=== PATIENT | female | born 1985 | race Caucasian/White ===

== ENCOUNTER 2022-10-07 14:36 | Outpatient (CLI) | payer MEDICAID, SELFPAY | END 2022-10-07 14:37 | disposition home or self-care (01) | LOC: NFLDREF 10-09 10:33 | PROVIDERS: PCP Physician Assistant Medical; Referring Provider Physician Assistant Medical; Visit Provider Physician Assistant Medical | DX: Z00.00 Encounter for general adult medical examination without abnormal findings (principal); E66.9 Obesity, unspecified; Z13.6 Encounter for screening for cardiovascular disorders | CPT/HCPCS: 80053; 80061; 84443 ==

== ENCOUNTER 2023-04-04 15:50 | Outpatient (CLI) | payer MEDICAID, SELFPAY ==
--- NOTE | 2023-04-04 16:00 | CRLHL7_ITS ---
For Patients: As a result of the Century Cures Act, medical imaging exams and procedure reports are released immediately into your electronic medical record. You may view this report before your referring provider. If you have questions, please contact your health care provider. Indication: Chronic sinusitis. Technique: Noncontrast axial CT of the paranasal sinuses with coronal reformats are provided. No comparisons. Findings: The visualized paranasal sinuses are clear. Incidental right side darrion bullosa. The ostiomeatal complexes are patent bilaterally. The visualized intraorbital contents appear within normal limits. Mild leftward nasal septal deviation. Impression: 1. Mild leftward nasal septal deviation. 2. Otherwise, unremarkable CT of the paranasal sinuses. Please note that all CT scans at this facility use dose modulation, iterative reconstruction, and/or weight-based dosing when appropriate to reduce radiation dose to as low as reasonably achievable. Dictated by Bj Bauman MD @ 04/04/2023 7:10:58 PM ----- ADDENDUM ----- FINDINGS: 3D re-formatted images were acquired. There is a 3-4 mm calcified lesion within the floor of the left maxillary sinus. The cortex appears contiguous with the floor of the maxillary sinus and this finding appears most suggestive of a small incidental osteoma. Dictated by Bj Bauman MD @ Apr 25 2023 5:17PM (Electronically Signed)
== END 2023-04-04 15:51 | disposition home or self-care (01) ==
LOC: CT 15:52
PROVIDERS: PCP Physician Assistant Medical; Visit Provider Otolaryngology
DX: J32.9 Chronic sinusitis, unspecified (principal); J34.2 Deviated nasal septum
CPT/HCPCS: 70486

== ENCOUNTER 2023-06-16 20:44 | Emergency (ER) | payer MEDICAID, SELFPAY ==
[2023-06-16 20:55] VITALS: BP 154/95; PULSE 80; RESP 18; TEMP 36.2; O2SAT 99
--- NOTE | 2023-06-16 21:07 | ED_ITS ---
HPI - General Adult General Chief complaint: Chest Pain Stated complaint: R side pain-left face numbness, headache Time Seen by Provider: 06/16/23 21:01 History of Present Illness HPI narrative: Patient comes in today with a host of concerns ranging from right shoulder pain to headaches to change in pressure of her sinuses when she bends forward to tingling on the left eye. She has been sick for last week. She was seen at urgent care where they did do a chest x-ray which was normal. Patient states he takes no medications. She is nonsmoker. She has not been drinking alcohol. She has had no fevers no chills no night sweats no chest pain no shortness of breath. She is mostly concerned that she is not having a stroke. Headache is mild and located in the frontal region. No radicular symptoms. Related Data Home Medications Medication Instructions Recorded Confirmed No Known Home Medications 05/30/22 06/15/23 Allergies Allergy/AdvReac Type Severity Reaction Status Date / Time No Known Drug Allergies Allergy Verified 06/15/23 13:34 Review of Systems Status of ROS: Reports: 10 or more systems reviewed and unremarkable except as noted in History and below [facility] Medical History Subchorionic hemorrhage of placenta in first trimester ?O41.8X10 - Other specified disorders of amniotic fluid and membranes, first trimester, not applicable or unspecified (ICD-10) ?O46.8X1 - Other antepartum hemorrhage, first trimester (ICD-10) ?Z34.90 - Encounter for supervision of normal , unspecified, unspecified trimester (ICD-10) Normal spontaneous vaginal delivery ?O80 - Encounter for full-term uncomplicated delivery (ICD-10) History of vaginal delivery History of use of contraceptive intrauterine device (IUD) ?Z92.0 - Personal history of contraception (ICD-10) History of hypothyroidism (2013) ?Z86.39 - Personal history of other endocrine, nutritional and metabolic disease (ICD-10) Surgical History History of tubal ligation ?Z98.51 - Tubal ligation status (ICD-10) History of colposcopy with cervical biopsy (2005) ?Z98.890 - Other specified postprocedural states (ICD-10) History of cholecystectomy ?Z90.49 - Acquired absence of other specified parts of digestive tract (ICD- 10) Family History Maternal Grandfather Diabetes Uncle Diabetes Aunt Diabetes Thyroid disease Father Diabetes Mother No problems noted. Daughter High cholesterol Social History (Updated 05/27/22 @ 10:51 by Deyanira Love ~ PSR) Narrative: -Ad Smoking Status: Never smoker Little interest or pleasure in doing things: not at all Feeling down, depressed, or hopeless: not at all Exam Narrative: Exam Narrative: EXAM GENERAL: Patient appears comfortable and well. EYES: No scleral icterus. ENT: Tympanic membranes and oropharynx normal. THYROID: no thyroid nodules or thyromegaly. LYMPH: No supraclavicular or cervical lymphadenopathy. SKIN: Visible skin seen during exam normal or with benign process only. EXT: No dependent lower extremity pedal edema. HEART: Regular rate and rhythm with no murmurs, rubs, or gallops. LUNGS: Clear to auscultation bilaterally with no crackles or wheezes. ABD: Soft, non tender, non distended. PSYCH: Good eye contact, speech is not pressured. Neurologic cranial nerves 2-12 grossly intact no focal defects. Const: Vital Signs, click to edit/add: Vital Signs - 24 hr 06/16/23 20:55 Temperature 97.2 F L Pulse Rate [Left P ulse Oximeter] 80 Respiratory Rate 18 Blood Pressure [Ri ght Upper Arm] 154/95 H Pulse Oximetry 99 Oxygen Delivery Me thod Room Air Course Course ED Course: Patient seen and examined. Vital Signs Vital signs: Initial Vital Signs Temperature 97.2 F L 06/16/23 20:55 Temperature Source Temporal Artery Scan 06/16/23 20:55 Pulse Rate 80 06/16/23 20:55 Pulse Rhythm Regular 06/16/23 20:55 Respiratory Rate 18 06/16/23 20:55 Blood Pressure 154/95 H 06/16/23 20:55 Blood Pressure Mean 114 H 06/16/23 20:55 Blood Pressure Position Sitting 06/16/23 20:55 Pulse Oximetry 99 06/16/23 20:55 Oxygen Delivery Method Room Air 06/16/23 20:55 Vital Signs Temperature 97.2 F L 06/16/23 20:55 Pulse Rate 80 06/16/23 20:55 Respiratory Rate 18 06/16/23 20:55 Blood Pressure 154/95 H 06/16/23 20:55 Pulse Oximetry 99 06/16/23 20:55 Oxygen Delivery Method Room Air 06/16/23 20:55 Temperature 97.2 F L 06/16/23 20:55 Pulse Rate 80 06/16/23 20:55 Respiratory Rate 18 06/16/23 20:55 Blood Pressure 154/95 H 06/16/23 20:55 Pulse Oximetry 99 06/16/23 20:55 Oxygen Delivery Method Room Air 06/16/23 20:55 Medical Decision Making MDM Narrative Medical decision making narrative: Patient seen examined. She appears to be anxious. She has a completely normal exam from my perspective. Her symptoms are likely due to anxiety versus viral syndrome. I did explain to her that laboratory testing and imaging would be unlikely to be helpful. She seemed disappointed in this but I did explain that I did not want to put her through testing that would only seem to complicate her situation. I did recommend rest fluids and Tylenol Motrin over the weekend with close fasting follow-up with her primary physician. Differential Diagnosis Differential Diagnosis: Viral syndrome sinusitis CVA angina Discharge Plan Discharge Clinical Impression: Headache Patient Disposition: Home, Self-Care Condition: Stable Instructions: General Headache (ED) Additional Instructions: Rest Fluids Tylenol Motrin Follow-up fasting with your doctor next week. Activity Level: No Restrictions Discharge Diet: Regular Prescriptions: No Action No Known Home Medications Follow Up/Referrals: Bernadette Mahmood PA-C [Primary Care Provider] - Stand Alone Forms: [employer] Info Instructions
== END 2023-06-16 21:24 | disposition home or self-care (01) ==
LOC: ED 21:22
PROVIDERS: Emergency Provider Internal Medicine; PCP Physician Assistant Medical
DX: R51.9 Headache, unspecified (principal)
CPT/HCPCS: 99283

== ENCOUNTER 2023-12-21 10:32 | Outpatient (CLI) | payer OTHER, SELFPAY | END 2023-12-21 10:33 | disposition home or self-care (01) | PROVIDERS: PCP Physician Assistant Medical; Visit Provider Physician Assistant Medical | DX: L65.9 Nonscarring hair loss, unspecified (principal); Z13.0 Encounter for screening for diseases of the blood and blood-forming organs and certain disorders involving the immune mechanism; Z13.1 Encounter for screening for diabetes mellitus; Z13.220 Encounter for screening for lipoid disorders | CPT/HCPCS: 80053; 80061; 82306; 82671; 82728; 84403; 84443 ==

== ENCOUNTER 2024-01-15 13:52 | Outpatient (CLI) | payer OTHER, SELFPAY ==
--- NOTE | 2024-01-15 14:00 | CRLHL7_ITS ---
For Patients: As a result of the Century Cures Act, medical imaging exams and procedure reports are released immediately into your electronic medical record. You may view this report before your referring provider. If you have questions, please contact your health care provider. INDICATION: Dysmenorrhea. TECHNIQUE: Transabdominal and transvaginal pelvic ultrasound. Grayscale and spectral Doppler images. FINDINGS: Uterus is anteverted and measures 8.5 x 3.6 x 5.3 cm. Normal endometrial stripe thickness of 8 mm. Both ovaries appear normal and have normal color and spectral Doppler flow. No adnexal mass or free fluid. IMPRESSION: Normal pelvic ultrasound. Dictated by Alfredo Harvey MD @ 01/16/2024 3:44:37 PM (Electronically Signed)
== END 2024-01-15 13:53 | disposition home or self-care (01) ==
PROVIDERS: PCP Physician Assistant Medical; Visit Provider Physician Assistant Medical
DX: N94.6 Dysmenorrhea, unspecified (principal)
CPT/HCPCS: 76830; 76856; 93976

== ENCOUNTER 2024-04-03 11:04 | Outpatient (CLI) | payer OTHER, SELFPAY | END 2024-04-03 11:05 | disposition home or self-care (01) | PROVIDERS: PCP Physician Assistant Medical; Visit Provider Physician Assistant Medical | DX: E55.9 Vitamin D deficiency, unspecified (principal); E11.9 Type 2 diabetes mellitus without complications; Z79.84 Long term (current) use of oral hypoglycemic drugs | CPT/HCPCS: 82043; 82306; 82570 ==

== ENCOUNTER 2024-06-11 09:42 | Outpatient (CLI) | payer OTHER, SELFPAY ==
--- NOTE | 2024-06-11 09:45 | CRLHL7_ITS ---
For Patients: As a result of the Century Cures Act, medical imaging exams and procedure reports are released immediately into your electronic medical record. You may view this report before your referring provider. If you have questions, please contact your health care provider. DIGITAL DIAGNOSTIC BILATERAL MAMMOGRAM USING TOMOSYNTHESIS AND COMPUTER-AIDED DETECTION LEFT BREAST ULTRASOUND CLINICAL HISTORY: LEFT breast pain. COMPARISON: 09/04/2020. TECHNIQUE: Digital BILATERAL mammogram in four projections with computer-aided detection. Tomosynthesis was used in this interpretation. Real-time ultrasound imaging of LEFT breast with imaging documentation. Scanning was performed by both the technologist and the radiologist. BREAST COMPOSITION: There are scattered areas of fibroglandular density. FINDINGS: 3D CC/MLO BILATERAL mammogram images submitted. No suspicious mass or architectural distortion. No suspicious calcifications or adenopathy. Targeted LEFT breast ultrasound performed at 12 o`clock 7 cm from the nipple corresponding to the area of concern. Normal fibroglandular tissue is present. No fluid collection or suspicious mass. IMPRESSION: No suspicious findings. No evidence of malignancy. RECOMMENDATIONS: Clinical follow-up and age-appropriate screening mammography. BI-RADS Category 2: Benign A lay language report of this examination will be provided to the patient. Dictated by Elbert Ngo MD @ 06/11/2024 11:44:17 AM jj/Dictated by: Elbert Ngo MD @ 06/11/2024 11:44:00 AM (Electronically Signed)
--- NOTE | 2024-06-11 10:15 | CRLHL7_ITS ---
For Patients: As a result of the Cures Act, medical imaging exams and procedure reports are released immediately into your electronic medical record. You may view this report before your referring provider. If you have questions, please contact your health care provider. PLEASE SEE DIGITAL DIAGNOSTIC BILATERAL MAMMOGRAM PERFORMED SAME DAY CRL:[email or web address] [email or web address]/Dictated by: Elbert Ngo MD @ 06/11/2024 11:44:00 AM (Electronically Signed)
== END 2024-06-11 09:43 | disposition home or self-care (01) ==
LOC: MAMMO 09:42
PROVIDERS: PCP Physician Assistant Medical; Visit Provider Emergency Medicine
DX: N64.4 Mastodynia (principal)
CPT/HCPCS: 76642; 77066; G0279

== ENCOUNTER 2025-04-06 21:01 | Emergency (ER) | payer OTHER, SELFPAY ==
--- OUTSIDE RECORDS SUMMARY | 2025-04-06 21:04 | XMS_ITS | Clinical Summary ---
[facility] Address [address] [place] [address] Care Team Providers Care Investigator Vice Name Role Phone Bernadette Mahmood PA-C Primary Care Provider [phone] Source Comments You are receiving this document as you are listed as the primary care provider,follow-up provider, or the patient has been referred to you for consultation.This is in compliance with the Medicare and[facility] EHR Incentive Program,which states Providers who transition their patient to another setting of careor provider of care or refers their patient to another provider of care shouldprovide summary care record for each transition of care or referral. [facility] Allergies No known active allergies Medications levothyroxine (SYNTHROID) 25 MCG tablet Take 25 mcg by mouth daily (every 24 hours). 4 Active predniSONE (DELTASONE) 20 MG tablet 3 po qd for 2 days, 2 for 4d, 1 for 4d, one half for 2d. 19 Tab 7 Active Additional Information Patient not taking.Reported on 10/19/2022 Active Problems No known active problems Family History Medical History Relation Name Comments Cataract Father Relation Name Status Comments Father Social History Tobacco Use Types Packs/Day Years Used Date Smoking Tobacco: Never Comments Unknown Sex and Gender Information Value Date Recorded Sex Assigned at Not on file Legal Sex Female 4:59 AM CDT Gender Identity Not on file Sexual Orientation Not on file Last Filed Vital Signs Vital Sign Reading Time Taken Comments Blood Pressure 120/87 02/02/2017 10:53 AM CDT Pulse 78 02/02/2017 10:53 AM CDT Temperature 37.1 C (98.7 F) 02/02/2017 10:53 AM CDT Respiratory Rate 16 02/02/2017 10:53 AM CDT Oxygen Saturation 100% 02/02/2017 10:53 AM CDT Inhaled Oxygen Concentration - - Weight - - Height - - Body Mass Index - - Plan of Treatment Upcoming Encounters Date Type Department Care Team (Late st Contact Info) Description 04/16/2025 10:20 AM CDT Appointment [facility] [place] [id number] [place] [id number] [place]on [address]y, [address] [place], [place] [id number] Health Maintenance Due Date Last Done Comments Cervical Cancer Screening Due 1985 Hep C Screening (Preventive Services) 1985 HIV Screening (Preventive Services) 2001 Adult Preventive Visit 2003 DTaP/Tdap/Td Vaccine (1 - Tdap) 2004 HepB Vaccine (1) 2004 HPV Vaccine (1 - 3-dose SCDM series) 2012 COVID-19 Vaccine ( - 2023-2 5 season) 2025 Influenza Vaccine (#1) 2025 3, 06/04/2007 Zoster/Shingles Vaccine (1 o f 2) 2035 HepA Vaccine Aged Out No longer eligi ble based on patient's age to complete this topic Hib Vaccine Aged Out No longer eligi ble based on patient's age to complete this topic IPV (Polio) Vaccine Aged Out No longe r eligible based on patient's age to complete this topic MCV4 Vaccine Aged Out No longer eligi ble based on patient's age to complete this topic Meningococcal B Vaccine Aged Out No l onger eligible based on patient's age to complete this topic Pneumococcal Vaccine Aged Out No long er eligible based on patient's age to complete this topic Care Teams Investigator Vice Relationship Specialty Start Date End Date Bernadette Mahmood PA-C [address], [place] [address] PCP - General Physician Mobile Application Development Lead 10/11/22
--- OUTSIDE RECORDS SUMMARY | 2025-04-06 21:04 | XMS_ITS | Patient Health Record ---
Author Organization [facility] Address [address] [place] [address] Care Team Providers Care Clinical Faculty Name Role Phone Bernadette Mahmood Primary Care Provider MARBIN Carrasquillo Unavailable [phone] Catrachito White Unavailable Unavailable Allergies No Known Allergies Reason For Referral No Information Social History Tobacco Use: Social History Observation Description Date Details (start date - stop date) Never Smoker NA - NA Social History Alcohol Use: Social Info Question Answer Notes Recreational drugs Recreational Drug Use: No Tobacco Use: Social Info Question Answer Notes Tobacco use/smoking Are you a nonsmoker Problems Problem Type SNOMED Code ICD Code Onset Dates Problem Status W/U Status Risk Notes Problem Deviated nasal septum (880302549) Nasal septal deviation (J34.2) Active confirmed Plan Of Treatment No Information Insurance Providers Payer Name Payer Address Payer Phone Subscriber Number Group Number Insured Name Patient Relationship to Insured Coverage Start Date Coverage End Date [facility] [address] [place] [phone] [id number] Gemma Norwood Self - patient is the insured 2022 Medical (General) History Surgical History Surgery Date(Month/Year) Gallbladder
[2025-04-06 21:32] VITALS: BP 144/90; PULSE 79; RESP 18; TEMP 36.9; O2SAT 98; BMI 33.3
--- NOTE | 2025-04-07 00:11 | CRLHL7_ITS ---
For Patients: As a result of the Cures Act, medical imaging exams and procedure reports are released immediately into your electronic medical record. You may view this report before your referring provider. If you have questions, please contact your health care provider. Indication: Mid back pain. Technique: Two views of the thoracolumbar spine. Comparison: None. Findings/Impression: No acute fracture or suspicious osseous lesion identified. Vertebral bodies maintain their normal heights with preserved thoracic kyphosis and lumbar lordosis. No significant spondylolisthesis. No advanced disc space height loss. There is mild multilevel spondylosis, most prominent throughout the visualized mid to distal thoracic spine. No suspicious soft tissue abnormality. Dictated by Farshad Juan MD @ 04/07/2025 1:22:58 AM (Electronically Signed)
--- NOTE | 2025-04-07 00:15 | ED_ITS ---
HPI - General Adult General Chief complaint: Back Injury/Pain Stated complaint: sharp/ stinging pain L side Time Seen by Provider: 04/07/25 00:01 Source: patient Mode of arrival: ambulatory Limitations: no limitations History of Present Illness HPI narrative: 39-year-old male presents to the emergency department for evaluation of back pain in the mid right paraspinal muscle area for the past 3 days. She comes in late on Monday night for this. Took some ibuprofen yesterday which did help but pain returned today and she has not taken any Tylenol, ibuprofen or tried any other interventions prior to coming to the emergency department. Unfortunately was quite busy here with high acuity patients and she had a 3+ hour wait prior to being seen. No fever. No trauma or injury. No dysuria, no hematuria. Feels a little nauseated and bloated with some gas. No vomiting. Diarrhea. She did try taking some MiraLax thinking she might be constipated and her symptoms have not improved. She did have a bowel movement yesterday. Continues to eat and drink. No shortness of breath, no chest pain. No rash. No prior history of back surgery. She is status post cholecystectomy. Past medical history is notable for obesity. She does not take any long-term medications. No known drug allergies. Nonsmoker. ROS is notable for the GI and musculoskeletal symptoms oral, otherwise denies times 12 systems. Related Data Previous Rx's ?Medication ?Instructions ?Recorded blood-glucose meter (Blood Glucose #1 ea 12/28/23 Monitoring kit) lancing device (lancing device #1 ea 12/28/23 with lancets) cholecalciferol (vitamin D3) 25 25 mcg PO QDAY #90 cap s 04/04/24 mcg (1,000 unit) capsule azithromycin 250 mg tablet See Rx Instructions PO .COM PLEX #6 07/17/24 tabs blood sugar diagnostic (Accu-Chek #100 ea 02/13/25 Guide test strips) Allergies Allergy/AdvReac Type Severity Reaction Status Date / Time No Known Drug Allergies Allergy Verified 05/29/24 14:14 [facility] Medical History Breast pain ?N64.4 - Mastodynia (ICD-10) Subchorionic hemorrhage of placenta in first trimester ?O41.8X10 - Other specified disorders of amniotic fluid and membranes, first trimester, not applicable or unspecified (ICD-10) ?O46.8X1 - Other antepartum hemorrhage, first trimester (ICD-10) ?Z34.90 - Encounter for supervision of normal , unspecified, unspecified trimester (ICD-10) History of vaginal delivery History of use of contraceptive intrauterine device (IUD) ?Z92.0 - Personal history of contraception (ICD-10) History of hypothyroidism (2013) ?Z86.39 - Personal history of other endocrine, nutritional and metabolic disease (ICD-10) Surgical History History of tubal ligation ?Z98.51 - Tubal ligation status (ICD-10) History of colposcopy with cervical biopsy (2005) ?Z98.890 - Other specified postprocedural states (ICD-10) History of cholecystectomy ?Z90.49 - Acquired absence of other specified parts of digestive tract (ICD- 10) Family History Maternal Grandfather Diabetes Uncle Diabetes Aunt Diabetes Thyroid disease Father Diabetes Mother No problems noted. Daughter High cholesterol Social History Narrative: -Ad; 5 children Lives multigenerational home Never Smoker Alcohol- none Smoking Status: Never smoker How often do you have a drink containing alcohol: never AUDIT-C Alcohol total score: 0 Non-prescribed substance use: denies use Exam Const: Vital Signs, click to edit/add: Vital Signs - 24 hr 04/06/25 21:32 04/07/25 00:23 Temperature 98.5 F Pulse Rate [Pulse Oximeter] 79 86 Respiratory Rate 18 16 Blood Pressure [Ri ght Upper Arm] 144/90 H 115/79 Pulse Oximetry 98 98 Oxygen Delivery Me thod Room Air Room Air Documenting provider has reviewed patient's vital signs: yes Common normals: no apparent distress and alert General appearance: cooperative, comfortable and well kempt HENMT: Common normals: normocephalic, moist oral mucous membranes and oropharynx normal Head and scalp: normocephalic Throat: posterior oropharynx normal Eye: Common normals: conjunctivae normal General eye: normal appearance of both eyes Conjunctiva: conjunctiva(e) normal Neck & C-Spine: Common normals: no lymphadenopathy General: normal visual inspection Resp: Common normals: normal respiratory effort and no use of accessory muscles Effort & inspection: able to speak in complete sentences Cardio: Common normals: regular rate, regular rhythm, S1 normal heart sound, S2 normal heart sound and no murmurs Rate: regular rate Rhythm: regular rhythm Heart sounds: S1 normal and S2 normal GI: Common normals: Normal to inspection, nondistended, normoactive bowel sounds present, soft to palpation, non-tender, no hepatosplenomegaly and no masses Palpation: soft and no hepatosplenomegaly : Common normals: no CVA tenderness Bladder/kidney exam: no CVA tenderness Back & Pelvis: Common normals: no CVA tenderness, thoracic and lumbar spine normal to inspection and no thoracic nor lumbar tenderness Sacroiliac joints: SI joints normal Other: Tenderness to left paraspinal muscles along the L1 through L2 region especially. No deformity. No rash. Extremity: Common normals: normal to inspection Neuro: Common normals: moves all extremities Sensorium/orientation: alert Motor exam: no movement abnormalities noted Psych: Appearance: well kempt Attitude: engaged Activity/motor behavior: appropriate eye contact Insight: insight good Judgement: judgment good Skin: Common normals: no rashes or lesions noted General skin exam: no rashes or lesions noted Course Course ED Course: 39-year-old female with focal back pain on exam, no series trauma or injury. Some nonspecific nausea and abdominal bloating but no alarming features of fever, bloody diarrhea, severe symptoms. Most likely musculoskeletal strain but cannot exclude more serious lumbar spine pathology, obstructive abdominal process, gas, colitis your, gastritis, amongst others. Cannot rule out nep hrolithiasis without urinalysis. Will obtain urinalysis. Given Toradol and Flexeril for pain obtain thoracolumbar x-ray. Await findings. Reevaluation(s) Time of Reevaluation #1: 01:41 Reevaluation #1: Counseled patient on x-ray findings. Some degenerative changes but no major findings in the abdomen. Urinalysis was not suspicious of problems either. With focal tenderness, this is suspicious of a muscular strain. Patient is reporting improvement of her pain with the Toradol and Flexeril. We discussed the muscle strain and management. Recommended Tylenol and ibuprofen. for prescription for muscle relaxants to have at home, she declines. I do not think steroids are necessary. Likely to have symptoms for another 3-5 days, heat encouraged. Primary care follow-up if not improving in 1 week. Alarm symptoms reviewed that would warrant ED presentation. She verbalizes understanding and agreement. Written instructions provided as well as printouts for home exercise plan Vital Signs Vital signs: Initial Vital Signs Temperature 98.5 F 04/06/25 21:32 Temperature Source Temporal Artery Scan 04/06/25 21:32 Pulse Rate 79 04/06/25 21:32 Respiratory Rate 18 04/06/25 21:32 Blood Pressure 144/90 H 04/06/25 21:32 Blood Pressure Mean 108 H 04/06/25 21:32 Blood Pressure Position Sitting 04/06/25 21:32 Pulse Oximetry 98 04/06/25 21:32 Oxygen Delivery Method Room Air 04/06/25 21:32 Vital Signs Temperature 98.5 F 04/06/25 21:32 Pulse Rate 79 04/06/25 21:32 Respiratory Rate 18 04/06/25 21:32 Blood Pressure 144/90 H 04/06/25 21:32 Pulse Oximetry 98 04/06/25 21:32 Oxygen Delivery Method Room Air 04/06/25 21:32 Temperature 98.5 F 04/06/25 21:32 Pulse Rate 86 04/07/25 00:23 Respiratory Rate 16 04/07/25 00:23 Blood Pressure 115/79 04/07/25 00:23 Pulse Oximetry 98 04/07/25 00:23 Oxygen Delivery Method Room Air 04/07/25 00:23 Medications Administered Medications: Discontinued Medications Generic Name Dose Route Start Last Admin Trade Name Freq PRN Reason Stop Dose Admin Cyclobenzaprine HCl 10 mg 04/07/25 00:11 04/07/25 00:21 Cyclobenzaprine Hcl 10 Mg Tablet PO 04/07/25 00:12 10 mg ONCE ONE Administration Ketorolac Tromethamine 10 mg 04/07/25 00:11 04/07/25 00:21 Ketorolac 10 Mg Tablet PO 04/07/25 00:12 10 mg ONCE ONE Administration Medical Decision Making Lab Data Lab results reviewed: Yes I reviewed the patient's lab results Lab results narrative: Urinalysis reassuring. No blood, infection or signs of dehydration. Labs: Lab Results 04/07/25 Range/Units 00:19 Urine Color Yellow (Yellow) Urine Appearance Clear (Clear) Urine pH 7.0 (5.0-8.5) Ur Specific [place] 1.025 (1.000-1.030) Urine Protein Negative (Negative) Urine Glucose (UA) Negative (Negative) Urine Ketones Trace A (Negative) Urine Blood Negative (Negative) Urine Nitrite Negative (Negative) Urine Bilirubin Negative (Negative) Urine Urobilinogen 2.0 A (0.2-1.0) Ur Leukocyte Esterase Negative (Negative) Urine RBC 0-2 (0-2) Urine WBC 0-2 (0-5) Ur Squamous Epith Cells None (None-Few) Urine Bacteria None (None) Imaging Data x-ray thoracolumbar spine: Attestation: I have reviewed the pertinent imaging results. My impression: very mild scoliosis and mild degenerative changes in the T10 through L3 areas Radiologist's impression: Findings/Impression: No acute fracture or suspicious osseous lesion identified. Vertebral bodies maintain their normal heights with preserved thoracic kyphosis and lumbar lordosis. No significant spondylolisthesis. No advanced disc space height loss. There is mild multilevel spondylosis, most prominent throughout the visualized mid to distal thoracic spine. No suspicious soft tissue abnormality. Dictated by Farshad Juan MD @ 04/07/2025 1:22:58 AM (Electronic Signature) Discharge Plan Discharge Clinical Impression: Back strain Patient Disposition: Home w/ Parent or Adult Condition: Improved Instructions: Low Back Strain (ED), Lower Back Exercises (ED), Core Strengthening Exercises (ED) Additional Instructions: as we discussed, the x-rays do show a little bit of arthritis changes in your spine that are not serious but they do tell me that you are more likely to have similar muscle strains in the future. You would benefit from a course of physical therapy and core strengthening to help reduce her risk of injury. I suspect you are correct, this strain happen from lifting your child. This is a little too much weight for you at this point. Consider seeing a physical therapist to start a regimen for core strengthening. I have included some basic exercises as well. Muscle strains like this tend to last about 7 days, you probably have about another 4-5 days of tenderness. He does more helpful than ice at this point. For pain, I recommend Tylenol 1000 mg every 6 hours and or ibuprofen 600 mg every 6 hours to help with pain. It is okay to use melatonin or Benadryl to help you sleep at night as well. Do gentle stretching twice daily to help loosen the muscles as well. The abdomen all looks okay on x-ray. I think the pain is just wrapping around from your back which is a phenomenon that is very common. It is okay to use stool softeners if you see fit but I do not appreciate any severe constipation. There were no signs of infection or blood in your urine to suggest urinary tract infection or kidney stone. If her symptoms have not improved in 1 week, I recommend following up with her primary care provider for physical therapy referral. Activity Level: Activity as Tolerated Discharge Diet: Regular Prescriptions: No Action (DME) blood-glucose meter [Blood Glucose Monitoring] Kit See Rx Instructions miscellaneous .MEDSUPPLY Qty: 1 0RF Rx Instructions: As directed (DME) lancing device [lancing device with lancets] Misc See Rx Instructions .MEDSUPPLY Qty: 1 3RF Rx Instructions: As directed- once daily for diabetes cholecalciferol (vitamin D3) 25 mcg (1,000 unit) capsule 25 mcg PO QDAY Qty: 90 0RF Rx Instructions: one capsule daily azithromycin 250 mg tablet See Rx Instructions PO .COMPLEX Qty: 6 0RF Rx Instructions: For 250 mg dose pack: take 500 mg today (day 1), then 250 mg for 4 days (days 2-5) PO (DME) Accu-Chek Guide test strips Strip See Rx Instructions .Route Qty: 100 0RF Rx Instructions: Use to test blood sugars once daily Follow Up/Referrals: Bernadette Mahmood PA-C [Primary Care Provider, Family Practice] Stand Alone Forms: PackLink Info Instructions
--- OUTSIDE RECORDS SUMMARY | 2025-04-07 00:18 | XMS_ITS | Clinical Summary ---
[facility] Address [address] [place] [address] Care Team Providers Care Fire Official Name Role Phone Bernadette Mahmood PA-C Primary Care Provider [phone] Source Comments You are receiving this document as you are listed as the primary care provider,follow-up provider, or the patient has been referred to you for consultation.This is in compliance with the Medicare and[facility] EHR Incentive Program,which states Providers who transition their patient to another setting of careor provider of care or refers their patient to another provider of care shouldprovide summary care record for each transition of care or referral. [facility] Allergies No known active allergies Medications [...] [facility] [id number] [place] [id number] [place] [address], [address] [place], [place] [id number] Health Maintenance Due Date Last Done Comments [...] age to complete this topic Care Teams Fire Official Relationship Specialty Start Date End Date Bernadette Mahomod PA-C [address], [place] [address] PCP - General Physician [place] 10/11/22
--- OUTSIDE RECORDS SUMMARY | 2025-04-07 00:18 | XMS_ITS | Patient Health Record ---
Author Organization [facility] Address [address] [place] [address] Care Team Providers Care Animal Rehabilitator Name Role Phone Bernadette Mahmood Primary Care Provider MARBIN Carrasquillo Unavailable [phone] Catrachito White Unavailable Unavailable Allergies No Known [...] Status Risk Notes Problem Deviated nasal septum ([id number]) Nasal septal deviation (J34.2) Active confirmed Plan Of Treatment No Information Insurance Providers Payer Name Payer Address Payer Phone Subscriber Number Group Number Insured Name Patient Relationship to Insured Coverage Start Date Coverage End Date [facility] [address] [place] [address] [id number] Gemma Norwood Self - patient is the insured 2022 Medical (General) History Surgical History Surgery Date(Month/Year) Gallbladder
[2025-04-07] MEDS: KETOROLAC 10 MG TABLET PO (00:21)
[2025-04-07] MEDS: CYCLOBENZAPRINE HCL 10 MG TABLET PO (00:21)
[2025-04-07 00:22] LABS: Appearance Urine Clear (Clear)
[2025-04-07 00:23] VITALS: BP 115/79; PULSE 86; RESP 16; O2SAT 98
== END 2025-04-07 01:45 | disposition home or self-care (01) ==
PROVIDERS: Emergency Provider Family Medicine; PCP Physician Assistant Medical
DX: S39.012A Strain of muscle, fascia and tendon of lower back, initial encounter (principal)
CPT/HCPCS: 72080; 81001; 99283; 99284; A9270

== ENCOUNTER 2025-04-14 11:57 | Outpatient (CLI) | payer OTHER, SELFPAY | END 2025-04-14 11:58 | disposition home or self-care (01) | PROVIDERS: PCP Physician Assistant Medical; Visit Provider Physician Assistant Medical | DX: Z00.00 Encounter for general adult medical examination without abnormal findings (principal); E55.9 Vitamin D deficiency, unspecified; E11.9 Type 2 diabetes mellitus without complications | CPT/HCPCS: 80053; 80061; 82306; 82728; 83001; 83690; 84443 ==

== ENCOUNTER 2025-06-11 09:42 | Outpatient (CLI) | payer OTHER, SELFPAY ==
--- NOTE | 2025-06-11 09:45 | CRLHL7_ITS ---
For Patients: As a result of the Cures Act, medical imaging exams and procedure reports are released immediately into your electronic medical record. You may view this report before your referring provider. If you have questions, please contact your health care provider. DIGITAL DIAGNOSTIC BILATERAL MAMMOGRAM WITH COMPUTER-AIDED DETECTION AND TOMOSYNTHESIS CLINICAL HISTORY: RIGHT breast lump, LEFT breast pain COMPARISON: 06/11/2024, 09/04/2020. TECHNIQUE: Digital BILATERAL mammogram in 4 projections with computer-aided detection. Tomosynthesis was used in this interpretation. Real-time ultrasound imaging of BILATERAL breast with imaging documentation. BREAST COMPOSITION: There are scattered areas of fibroglandular density. FINDINGS: 3D CC/MLO BILATERAL mammogram images submitted. No suspicious masses or architectural distortion. No suspicious calcifications or adenopathy. Targeted RIGHT breast ultrasound performed in the area of concern. At 12 o`clock 10 cm from the nipple there is normal fibroglandular tissue. No fibrocystic change or mass. Targeted LEFT breast ultrasound performed in the area of concern at 12 o`clock 12 cm from the nipple. Normal fibroglandular tissue is present. No suspicious findings. IMPRESSION: No evidence of malignancy. RECOMMENDATIONS: Age-appropriate screening mammography. A lay language report of this examination will be provided to the patient. BI-RADS Category 2. Benign Dictated by Elbert Ngo MD @ 06/11/2025 10:46:26 AM KEATON/maria elena DW/Dictated by: Elbert Ngo MD @ 06/11/2025 10:46:00 AM (Electronically Signed)
--- NOTE | 2025-06-11 10:15 | CRLHL7_ITS ---
For Patients: As a result of the Century Cures Act, medical imaging exams and procedure reports are released immediately into your electronic medical record. You may view this report before your referring provider. If you have questions, please contact your health care provider. Please see digital diagnostic BILATERAL mammogram report done the same day for combined report. DSM:maria elena 06/11/2025 DW/Dictated by: Elbert Ngo MD @ 06/11/2025 10:39:00 AM (Electronically Signed)
== END 2025-06-11 09:43 | disposition home or self-care (01) ==
LOC: MAMMO 09:42
PROVIDERS: PCP Physician Assistant Medical; Visit Provider Physician Assistant Medical
DX: N63.10 Unspecified lump in the right breast, unspecified quadrant (principal); N64.4 Mastodynia; N64.59 Other signs and symptoms in breast; R10.9 Unspecified abdominal pain; R53.83 Other fatigue
CPT/HCPCS: 76642; 77066; 80053; 82306; 82607; 83690; 86140; G0279

== ENCOUNTER 2025-06-17 13:42 | Outpatient (CLI) | payer OTHER, SELFPAY ==
--- NOTE | 2025-06-17 13:45 | CRLHL7_ITS ---
For Patients: As a result of the Century Cures Act, medical imaging exams and procedure reports are released immediately into your electronic medical record. You may view this report before your referring provider. If you have questions, please contact your health care provider. CLINICAL HISTORY: Pelvic and perineal pain COMPARISON: None. TECHNIQUE: 2D bhat-scale ultrasound. In addition, color Doppler and spectral Doppler analysis was performed of the pelvis using a transabdominal and transvaginal approach. Transvaginal imaging performed to better visualize the endometrial stripe and ovaries. FINDINGS: Uterus measures 8.4 x 3.7 x 5.2 cm. No uterine fibroid. The endometrial lining appears normal and measures 8 mm in thickness. The right ovary measures 2.4 x 1.7 x 1.2 cm in size and the left ovary measures 3.4 x 1.7 x 2.2 cm. The ovaries demonstrate normal arterial and venous blood flow on color Doppler and spectral Doppler analysis. There are no suspicious fluid collections within the cul-de-sac. Incidental dominant follicle left ovary measures 1.6 cm. IMPRESSION: Unremarkable. Dictated by Elbert Ngo MD @ 06/17/2025 3:12:58 PM (Electronically Signed)
== END 2025-06-17 13:43 | disposition home or self-care (01) ==
LOC: US 13:42
PROVIDERS: PCP Physician Assistant Medical; Visit Provider Physician Assistant Medical
DX: R10.20 Pelvic and perineal pain unspecified side (principal)
CPT/HCPCS: 76830; 76856; 93976